=== PATIENT | female | born 1965 | race Caucasian/White ===

== ENCOUNTER → 2016-10-21 | Outpatient (CLI) | payer BC ==
--- NOTE | 2016-10-22 09:33 | MM ---
Reason for exam: screening (asymptomatic). Last mammogram was performed 1 year and 3 months ago. History: Benign US LT VAD breast biopsy of the left breast, April 12, 2011. Benign right breast aspiration of the right breast, April 12, 2011. Benign excisional biopsy of the right breast, 2011. Took hormonal contraceptives for 12 years. Physical Findings: A clinical breast exam by your physician is recommended on an annual basis and results should be correlated with mammographic findings. MG 3D Screening Mammo W/Cad Bilateral CC and MLO view(s) were taken. Prior study comparison: August 01, 2015, bilateral MG 3d screening mammo w/cad. March 11, 2014, bilateral MG diagnostic mammo w CAD FELIX. The breast tissue is extremely dense which could obscure a lesion on mammography. Finding: Stable architectural distortion in the upper quadrant, anterior position of the right breast consistent with known excisional biopsy. Previous mammotome biopsy in the left breast. There is no discrete abnormality. ASSESSMENT: Benign, BI-RAD 2 RECOMMENDATION: Routine screening mammogram of both breasts in 1 year.
== END | disposition home or self-care (01) ==
LOC: RADMAMWWP 07:34
PROVIDERS: ATTEND Obstetrics & Gynecology
DX: Z12.31 Encounter for screening mammogram for malignant neoplasm of breast (principal)
CPT/HCPCS: 77063; G0202

== ENCOUNTER 2017-12-29 09:10 | Day surgery (SDC) | payer BC ==
[2017-12-27 14:25] VITALS: BMI 32.9
[~2017-12-29 09:10] MED LIST: LIDOCAINE 1% 20 ML VIAL (10MG/ML) FOR IV START INTRADERMA PRN
[2017-12-29] MEDS: LACTATED RINGERS 1,000 ML IV SCH ×2 (09:14→10:04)
[2017-12-29 09:49] VITALS: TEMP 98.5
[2017-12-29 10:04] LABS: Glucose,Whole Blood 111 mg/dL (75-99)
[2017-12-29] MEDS ORDERED: PROPOFOL 10 MG/ML 20 ML VIAL IV ONE (10:15)
--- NOTE | 2017-12-29 11:02 | P.PCN ---
Date of Procedure: 12/29/17 Description of Procedure: BRIEF HISTORY: Patient is a 52-year-old pleasant female patient with a medical history significant for hypertension and diabetes mellitus scheduled for an elective colonoscopy as a part of colorectal screening. The patient denies any prior history of colonoscopy in the past, however has had an upper endoscopy. She denies any diarrhea, constipation, change in her bowel habits, hematochezia or melena. PROCEDURE PERFORMED: Colonoscopy. PREOPERATIVE DIAGNOSIS: Screening colonoscopy, no prior colonoscopy reported]. ESTIMATED BLOOD LOSS: Minimal. IV sedation per Anesthesia. PROCEDURE: After informed consent was obtained, the patient, was brought into the endoscopy unit. IV sedation was administered by Anesthesia under continuous monitoring. Digital rectal examination was normal. Initially the Olympus CF- 190 flexible video colonoscope was then inserted in the rectum, gradually advanced into the cecum without any difficulty. Careful examination was performed as the scope was gradually being withdrawn. Ileocecal valve and the appendiceal orifice were visualized and appeared normal. Prep was good. Mucosa of the cecum, ascending colon, transverse colon, descending colon, sigmoid colon , and rectum appeared normal. Retroflexion was performed in the rectum and no lesions were seen, With mild internal hemorrhoids noted. The patient tolerated the procedure well. IMPRESSION: Normal-appearing colon from rectum to cecum . RECOMMENDATIONS: Findings of this examination were discussed with the patient and her fianc. Okay to resume regular diet. Repeat colonoscopy in one year or sooner if signs or symptoms develop].
[2017-12-29 11:22] VITALS: BP 110/67; PULSE 78; RESP 18
== END 2017-12-29 11:53 | disposition home or self-care (01) ==
LOC: ORWHC2ENDO 09:10
PROVIDERS: ATTEND Internal Medicine
DX: Z12.11 Encounter for screening for malignant neoplasm of colon (principal); K64.8 Other hemorrhoids; K21.9 Gastro-esophageal reflux disease without esophagitis; I10 Essential (primary) hypertension; E11.9 Type 2 diabetes mellitus without complications; Z88.5 Allergy status to narcotic agent; Z91.048 Other nonmedicinal substance allergy status; Z79.84 Long term (current) use of oral hypoglycemic drugs; Z79.1 Long term (current) use of non-steroidal anti-inflammatories (NSAID); Z79.899 Other long term (current) drug therapy
CPT/HCPCS: J2704; G0121

== ENCOUNTER → 2018-06-09 | Outpatient (CLI) | payer BC ==
--- NOTE | 2018-06-09 08:51 | US ---
EXAMINATION TYPE: US extremity nonvasculr ltd LT DATE OF EXAM: 06/09/2018 COMPARISON: NONE CLINICAL HISTORY: D17.22 Benign lipoma of Left arm. Patient has had multiple palpable over the years on her left arm, patient states they are growing. Multiple ill-defined hyperechoic areas seen in left upper lateral arm and forearm that most likely re presents lipomas. There are at least 6 of these lesions measuring up to 1 cm. IMPRESSION: Numerous ill-defined hyperechoic lesions at the site of palpable abnormality in the left upper extremity likely represent lipomas however given the ill-defined margins and clinical history of growth MRI with contrast is recommended to exclude malignant lipomatous lesion.
== END ==
LOC: RADUSWWP 07:32
PROVIDERS: ATTEND Family Medicine
DX: D17.22 Benign lipomatous neoplasm of skin and subcutaneous tissue of left arm (principal)

== ENCOUNTER → 2018-06-28 | Outpatient (CLI) | payer BC ==
--- NOTE | 2018-06-29 19:12 | MR ---
EXAMINATION TYPE: MR forearm LT wo/w con DATE OF EXAM: 06/28/2018 COMPARISON: None HISTORY: Lt forearm mass/swelling CONTRAST: Standard multiplanar, multisequence MRI departmental protocol utilizing 7.5 mL intravenous Gadavist g adolinium contrast. FINDINGS: There is a marker placed over the lateral aspect of the proximal forearm in the area of con cern. This is lateral to the proximal radius at the level of the radial tubercle. I see no underlying soft tissue mass. There is no pathologic fluid collection. The distal humerus and the visualized rad ius and ulna appear intact. There is no evidence of a fracture. Contrast images show no pathologic en hancement. There is no evidence of elbow joint effusion. Biceps tendon is intact. Muscle bundles visu alized have normal signal pattern without evidence of edema. Subcutaneous fat has normal signal patte rn. IMPRESSION: Negative MR scan of the forearm. No discrete mass identified.
== END | disposition home or self-care (01) ==
LOC: RADMRIMAIN 20:15
PROVIDERS: ATTEND Family Medicine
DX: D17.22 Benign lipomatous neoplasm of skin and subcutaneous tissue of left arm (principal)
CPT/HCPCS: 73220; A9585

== ENCOUNTER → 2018-07-03 | Outpatient (CLI) | payer BC ==
--- NOTE | 2018-07-03 20:48 | MR ---
MR left humerus within without contrast HISTORY: Lipoma Multiplanar multisequence and postcontrast images following 7.5 cc Gadavist IV to the left humerus. Correlation MR left forearm dated 06/28/2018. Overlying markers are present at the site of patient's palpable abnormalities. There is no discrete mass evident. Bone marrow signal is normal. Muscle signal is within normal limit s. No fracture or dislocation. No abnormal enhancement following contrast administration. IMPRESSION: No discrete masses are seen, findings likely compatible with patient's history of lipomas .
== END ==
LOC: RADMRIMAIN 17:11
PROVIDERS: ATTEND Family Medicine
DX: D17.22 Benign lipomatous neoplasm of skin and subcutaneous tissue of left arm (principal)
CPT/HCPCS: 73220; A9585

== ENCOUNTER → 2019-01-15 | Outpatient (CLI) | payer BC ==
--- NOTE | 2019-01-16 09:18 | MM ---
Reason for exam: screening (asymptomatic). Last mammogram was performed 2 years and 3 months ago. History: Patient is postmenopausal. Benign US LT VAD breast biopsy of the left breast, April 12, 2011. Benign right breast aspiration of the right breast, April 12, 2011. Benign excisional biopsy of the right breast, 2011. Took hormonal contraceptives for 12 years. Physical Findings: A clinical breast exam by your physician is recommended on an annual basis and results should be correlated with mammographic findings. MG 3D Screening Mammo W/Cad Bilateral CC and MLO view(s) were taken. Prior study comparison: October 21, 2016, bilateral MG 3d screening mammo w/cad. August 01, 2015, bilateral MG 3d screening mammo w/cad. The breast tissue is heterogeneously dense. This may lower the sensitivity of mammography. Stable benign calcifications. Stable post operative distortion right breast. No significant changes when compared with prior studies. ASSESSMENT: Benign, BI-RAD 2 RECOMMENDATION: Routine screening mammogram of both breasts in 1 year.
== END | disposition home or self-care (01) ==
LOC: RADMAMWWP 07:31
PROVIDERS: ATTEND Family Medicine
DX: Z12.31 Encounter for screening mammogram for malignant neoplasm of breast (principal)
CPT/HCPCS: 77063; 77067

== ENCOUNTER → 2019-10-23 | Outpatient (CLI) | payer BC ==
--- NOTE | 2019-10-23 16:17 | CONS ---
CONSULTATION REASON FOR CONSULTATION: Hypersomnia and forgetfulness. This is a 54-year-old female patient who is having some difficulties with memory, including forgetfulness and short-term memory. She has undergone neurologic evaluation, including a psychoneural evaluation, and the evaluation came back negative for any organic brain disorder. She was referred to me for sleep evaluation. The thinking process is that she may have poor sleep quality that is affecting her daytime symptoms. She tells me that she had a sleep study back in the year 1999 and she did not qualify for sleep apnea treatment. She does not know much details about that older testing. She has diabetes, hypertension, acid reflux and she has also a hiatal hernia. She snores. She has been told that she stops breathing at night. Sometimes it is hard for her to go to sleep, and she is hyperarousable where she wakes up on multiple occasions in the middle of the night. Exact reason for arousal is not clear. She is going to bed between 10 and 11 p.m. and wakes up at around 7:00 in the morning and she is not feeling refreshed. She does not take any naps during the day, but she feels tired and fatigued throughout the day. Her Iona score is 9. She sleeps on her side. No TV in the bedroom. No naps during the day. She drinks one caffeinated beverages a day; coffee in the morning. Her weight is up by around 7 pounds over the past one year. She is . She wakes up multiple times in the middle of the night. She rolls, at times any movement or light or stimulation including a pet moving around the house,, will make her awake. No hallucinations. No cataplexy. No history of any motor vehicle accident because of feeling drowsy or sleepy. No restlessness in the lower extremities. She has grinding of the teeth. PAST MEDICAL HISTORY: Tooth grinding. Hypertension. Diabetes mellitus, type 2. Acid reflux. Hiatal hernia. Obesity. PAST SURGICAL HISTORY: Past surgical history includes hysterectomy, tubal ligation, bladder suspension surgery, cholecystectomy, breast lumpectomy and tonsillectomy. SOCIAL HISTORY: The patient is a nonsmoker. No history of alcoholism. No history of IV drugs. FAMILY HISTORY: Positive for sleep apnea in her father. Her mother of complications of a myocardial infarction. REVIEW OF SYSTEMS: Fourteen-point review of systems was done. No sleepwalking or sleeptalking. No anxiety or panic attacks. No depression. No palpitation. No heartburn. No shortness of breath or chest pain. No symptoms of RLS overnight. PHYSICAL EXAMINATION: BP is 134/67, pulse 78, respirations 16. Temperature is 98.0, saturation 97% on room air. Height is 5 feet 2 inches, weight is 180. BMI 32.9. Neck size is 14-1/2 inches. GENERAL APPEARANCE: Obese, calm, comfortable. No acute distress. HEAD: Atraumatic, normocephalic. NECK: Mallampati class IV. There is no goiter or neck masses. LUNGS: Clear to auscultation. HEART: Heart sounds are regular rate and rhythm. Normal S1, S2. No S3, S4. No murmurs. ABDOMEN: Soft, nontender. No organomegaly. EXTREMITIES: No edema. No cyanosis or clubbing. NEUROLOGIC: Awake and alert. There is no focal neurological deficit. PSYCHIATRIC: Negative for anxiety or depression. IMPRESSION: 1. Forgetfulness, short term. 2. Chronic fatigue with limited sleepiness. Iona score is 5. 3. Occasional snoring. 4. Obesity with a body mass index of 32.9. 5. Grinding of the teeth. 6. Hypertension. 7. Diabetes mellitus, type 2. 8. Acid reflux with hiatal hernia. PLAN: I am not absolutely sure the patient has obstructive sleep apnea. My suspicion is low. Nevertheless, it is worthwhile to do a polysomnogram to assess her sleep quality, as the main question is that the patient is having forgetfulness and fatigue during the day and whether she is getting adequate sleep that may contribute to her daytime symptoms. For that reason, a full in-lab polysomnogram will be ordered. Further recommendations are to follow based on the results. Her sleep hygiene measures in general are adequate. MMODL / IJN: [id number] /
== END | disposition home or self-care (01) ==
LOC: SLEEP 13:50
PROVIDERS: ATTEND Internal Medicine Critical Care Medicine
DX: Z53.9 Procedure and treatment not carried out, unspecified reason (principal)

== ENCOUNTER → 2020-03-04 | Outpatient (CLI) | payer BC ==
--- NOTE | 2020-03-04 17:45 | PN ---
PROGRESS NOTE This is a 54-year-old female patient who was initially referred to me for short-term memory problems and chronic fatigue and some degree of sleepiness. The patient was further investigated with a full polysomnogram, and the polysomnography report was given separately; please refer to the official report of the polysomnogram. In summary, the patient was found to have mild obstructive sleep apnea with an AHI of 7.5 that was REM-specific. She also developed some mild nocturnal oxygen desaturation. Nevertheless, I did not think that this was the main reason for the patient's forgetfulness and memory problems, which were essentially short-term memory issues. I discussed the findings with the patient. In fact, the patient had adequate sleep architecture, and the patient's sleep efficiency was quite high at 97%. No other major abnormalities were noted. No periodic limb movement activity. The patient did well on her sleep study other than some mild REM-specific obstructive sleep apnea. Vitals are stable, with a blood pressure of 141/91 with a pulse of 88, respirations 16, and saturation 99% on room air. Weight is 182. GENERAL APPEARANCE: Calm, comfortable. HEAD: Atraumatic, normocephalic. NECK: Supple. No JVD. No goiter or neck masses. LUNGS: Clear to auscultation. HEART: Heart sounds are regular rate and rhythm. Normal S1, S2. No S3, S4. No murmurs. ABDOMEN: Soft, nontender. No organomegaly. EXTREMITIES: No edema. No cyanosis or clubbing. IMPRESSION: 1. Obstructive sleep apnea, REM-specific, mild, with an AHI of 7.1. 2. Adequate sleep architecture. 3. Increased sleep efficiency, which would be a marker of sleep deprivation. 4. Forgetfulness/short-term memory loss, not related to obstructive sleep apnea. 5. Chronic fatigue, probably not related to obstructive sleep apnea. 6. History of snoring. 7. History of grinding. 8. Hypertension. 9. Diabetes mellitus. PLAN: 1. No need for CPAP therapy, as discussed. 2. Encourage weight loss. 3. Sleep in a sidewise body position. 4. Implement good sleep hygiene measures. 5. Workup further for other causes for forgetfulness and fatigue other than obstructive sleep apnea. Disease is mild and it is REM-specific. She does not warrant any intervention or treatment for now. I also recommended increasing her number of hours of sleep up to 8-1/2 hours, as the patient has increased sleep efficiency with a short sleep latency, and this may be a sign of sleep deprivation or she may be potentially a long sleeper. See me back as needed. MMODL / IJN: [id number] /
== END | disposition home or self-care (01) ==
LOC: SLEEP 16:24
PROVIDERS: ATTEND Internal Medicine Critical Care Medicine
DX: G47.33 Obstructive sleep apnea (adult) (pediatric) (principal); R41.3 Other amnesia; I10 Essential (primary) hypertension; E11.9 Type 2 diabetes mellitus without complications; Z86.59 Personal history of other mental and behavioral disorders

== ENCOUNTER → 2020-09-05 | Outpatient (CLI) | payer BC ==
--- NOTE | 2020-09-09 13:41 | MM ---
Reason for exam: screening (asymptomatic). Last mammogram was performed 1 year and 8 months ago. History: Patient is postmenopausal. Benign US LT VAD breast biopsy of the left breast, April 12, 2011. Benign right breast aspiration of the right breast, April 12, 2011. Benign excisional biopsy of the right breast, 2011. Took hormonal contraceptives for 12 years. Physical Findings: A clinical breast exam by your physician is recommended on an annual basis and results should be correlated with mammographic findings. MG 3D Screening Mammo W/Cad Bilateral CC and MLO view(s) were taken. Prior study comparison: January 15, 2019, bilateral MG 3d screening mammo w/cad. October 21, 2016, bilateral MG 3d screening mammo w/cad. The breast tissue is extremely dense which could obscure a lesion on mammography. No significant changes when compared with prior studies. ASSESSMENT: Benign, BI-RAD 2 RECOMMENDATION: Routine screening mammogram of both breasts in 1 year.
== END | disposition home or self-care (01) ==
LOC: RADMAMWWP 07:55
PROVIDERS: ATTEND Obstetrics & Gynecology
DX: Z12.31 Encounter for screening mammogram for malignant neoplasm of breast (principal); Z78.0 Asymptomatic menopausal state; Z79.3 Long term (current) use of hormonal contraceptives
CPT/HCPCS: 77063; 77067

== ENCOUNTER → 2022-03-11 | Outpatient (CLI) | payer BC ==
--- NOTE | 2022-03-12 08:37 | MM ---
Reason for Exam: Screening (asymptomatic). Last mammogram was performed 1 year(s) and 6 month(s) ago. Patient History: Menarche at age 12. First Full-Term at age 22. Hysterectomy at age 51. Postmenopausal. Patient has history of breast feeding. Patient used Hormonal Contraceptives for 12 years. Currently using Estrogen and Progesterone, starting at age 54. 2011, Benign Excisional Biopsy on the right side. 04/12/2011, Benign Core Biopsy on the left side. 04/12/2011, Benign Cyst Aspiration on the right side. Risk Values: Della 5 year model risk: 1.7%. NCI Lifetime model risk: 12.1%. Prior Study Comparison: 08/01/2015 Bilateral Screening Mammogram, [facility]. 10/21/2016 Bilateral Screening Mammogram, [facility]. 01/15/2019 Bilateral Screening Mammogram, [facility]. 09/05/2020 Bilateral Screening Mammogram, [facility]. Tissue Density: The breast tissue is extremely dense which could obscure a lesion on mammography. Findings: Analyzed By CAD. There is no suspicious group of microcalcifications or new suspicious mass in either breast. Benign calcifications within both breasts. Previous mammotome biopsy in the left breast. Stable postoperative distortion of the right breast. Overall Assessment: Benign, BI-RAD 2 Management: Screening Mammogram of both breasts in 1 year. A clinical breast exam by your physician is recommended on an annual basis and results should be correlated with mammographic findings. Electronically signed and approved by: Yovanny Roque D.O.
== END | disposition home or self-care (01) ==
LOC: RADMAMWWP 07:33
PROVIDERS: ATTEND Obstetrics & Gynecology
DX: Z12.31 Encounter for screening mammogram for malignant neoplasm of breast (principal); Z78.0 Asymptomatic menopausal state; Z98.890 Other specified postprocedural states
CPT/HCPCS: 77063; 77067

== ENCOUNTER → 2023-09-09 | Outpatient (CLI) | payer BC ==
--- NOTE | 2023-09-11 12:19 | MM ---
Reason for Exam: Screening (asymptomatic). Last mammogram was performed 1 year(s) and 6 month(s) ago. Patient History: Menarche at age 12. First Full-Term at age 22. Hysterectomy at age 51. Postmenopausal. Patient has history of breast feeding. Patient used Hormonal Contraceptives for 12 years. Currently using Estrogen and Progesterone, starting at age 54. 2011, Benign Excisional Biopsy on the right side. 04/12/2011, Benign Core Biopsy on the left side. 04/12/2011, Benign Cyst Aspiration on the right side. Risk Values: Della 5 year model risk: 1.8%. NCI Lifetime model risk: 11.6%. Prior Study Comparison: 01/15/2019 Bilateral Screening Mammogram, [facility]. 09/05/2020 Bilateral Screening Mammogram, [facility]. 03/11/2022 Bilateral MG 3D screening mammo w/cad, [facility]. Tissue Density: The breasts are heterogeneously dense, which may obscure small masses. Findings: Analyzed By CAD. The pattern is symmetrical. There is some vague distortion within the 12:00 anterior right breast which appears stable from the comparison studies. Core markers within the left breast. Benign spherical calcifications bilaterally. No suspicious groups of microcalcifications, spiculated or lobular masses, architectural distortion or other secondary signs of malignancy are mammographically apparent. Overall Assessment: Benign, BI-RAD 2 Management: Screening Mammogram of both breasts in 1 year. A negative mammogram report should not preclude additional follow up of suspicious palpable abnormalities. Patient should continue monthly self breast exam. A clinical breast exam by your physician is recommended on an annual basis and results should be correlated with mammographic findings. Note on Della scores and lifetime risk: 1. A Della score greater than 3% is considered moderate risk. If this is the case, consider specialist referral to assess eligibility for a risk reducing agent. 2. If overall lifetime risk for the development of breast cancer is 20% or higher, the patient may qualify for future screening with alternating mammogram and breast MRI. Electronically signed and approved by: Josh Anguiano D.O. Radiologis
== END | disposition home or self-care (01) ==
LOC: RADMAMWWP 07:40
PROVIDERS: ATTEND Obstetrics & Gynecology
DX: Z12.31 Encounter for screening mammogram for malignant neoplasm of breast (principal); R92.333 Mammographic heterogeneous density, bilateral breasts; Z78.0 Asymptomatic menopausal state
CPT/HCPCS: 77063; 77067

== ENCOUNTER → 2024-07-17 | Outpatient (CLI) | payer BC ==
--- NOTE | 2024-07-18 05:03 | CA ---
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 Procedure CPT: Indication: R06.09 Dyspnea ICD-9 Codes: Rhythm: Patient History: Cardiac Medications: BACLOFEN,,,,,, ROSUVASTATIN,,,,,, HYDROCHLOROTHIAZIDE,,,,,, LOSARTAN,,,,,, METFORMIN,,,,,, PROGESTERONE,,,,,, TRULICITY,,,,,, MULTIVITAMIN,,,,, Medications in past 24 hours: Contrast: Stress Results Protocol: Hasmukh Total dose(mL): Exercise Duration (min:sec): 5:[address] Depression (mm): Angina Score: Richardson Score: METS: 7.0 Resting HR: 85 Resting BP: 127 / 81 Peak HR: 157 Peak BP: 175 / 69 Max Predicted HR: 163 96 % Max Predicted HR Target HR: 139 Double Product: 85042 Stress Summary: BP Response: Reason for Termination: MAX EXERTION/TARGET HR Cardiac Symptoms: NO SYMPTOMS ECG Analysis Resting ECG: Stress ECG: Arrhythmia: Echo Analysis Resting Echo: Peak Echo Analysis: MEASUREMENTS (Male/Female) Normal Values CONCLUSIONS Average exercise tolerance Normal electrocardiogram and echocardiogram in response to exercise Dr. Juin Sagastume MD (Electronically Signed) Final Date: 18 Jul 2024 05:02
== END | disposition home or self-care (01) ==
LOC: RADNMMAIN 10:39
PROVIDERS: ATTEND Family Medicine
DX: R06.09 Other forms of dyspnea (principal)
CPT/HCPCS: 93351